=== PATIENT | female | born 1980 | race African-American/Black ===

== ENCOUNTER 2017-08-09 07:50 | Emergency (ER) | payer MEDICARE, MEDICAID ==
[2017-08-09 07:53] VITALS: BP 134/88; PULSE 61; RESP 15; TEMP 97.8; O2SAT 98
[2017-08-09] MEDS ORDERED: LISI10TA PO ×2 (08:11→11:23)
[2017-08-09] MEDS ORDERED: PALI156P IM (08:11)
[2017-08-09] MEDS ORDERED: ATOR20TA15 PO ×2 (08:11→11:23)
[2017-08-09] MEDS ORDERED: NOVOINJ2 SQ ×2 (08:11→11:23)
[2017-08-09] MEDS ORDERED: BUPR100T4 PO (08:11)
[2017-08-09] MEDS ORDERED: DEPA500T3 PO (08:11)
[2017-08-09] MEDS ORDERED: INSU1INJ5 SQ ×2 (08:11→11:23)
[2017-08-09] MEDS ORDERED: TRAZ100T6 PO (08:11)
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
[2017-08-09] MEDS ORDERED: VIST50CA PO (08:12)
[2017-08-09] MEDS ORDERED: INSULIN DETEMIR 100 UNITS/ML VIAL SQ ONE (08:45)
[2017-08-09] MEDS ORDERED: FLUCONAZOLE 200 MG TAB PO ONE (08:45)
[2017-08-09] MEDS ORDERED: INSULIN ASPART 1,000 UNITS/10 ML VIAL SQ ONE (08:45)
[2017-08-09] MEDS ORDERED: NYST15T TOPICAL (11:23)
[2017-08-09] MEDS ORDERED: FLUT1SPR5 EACH NARE (11:45)
[2017-08-09 12:37] LABS: CHLAMYDIA PCR NOT DETECTED (NOT DETECT); NEISSERIA PCR NOT DETECTED (NOT DETECT)
== END 2017-08-09 11:53 | disposition home or self-care (01) ==
LOC: NEPE 07:50
DX: E11.65 Type 2 diabetes mellitus with hyperglycemia (principal); B37.3 Candidiasis of vulva and vagina; Z72.0 Tobacco use
CPT/HCPCS: 87210; 87491; 87591; 96372; 99284; J1815

== ENCOUNTER 2017-10-02 11:30 | Emergency (ER) | payer MEDICARE, MEDICAID ==
[~2017-10-02 11:30] MED LIST: ATOR20TA15 PO; BUPR100T4 PO; DEPA500T3 PO; FLUT1SPR5 EACH NARE; INSU1INJ5 SQ; LISI10TA PO; NOVOINJ2 SQ; NYST15T TOPICAL; PALI156P IM; TRAZ100T10 PO; VIST50CA PO
[2017-10-02 11:32] VITALS: BP 141/75; PULSE 88; RESP 16; TEMP 98.5; O2SAT 98
--- NOTE | 2017-10-02 12:16 | PD ---
HPI Chief Complaint: [employer]ader Problem/Complaint Time Seen by Provider: 12:16 Travel History International Travel<30 days: No Contact w/Intl Traveler<30days: No Traveled to known affect area: No History of Present Illness HPI 37-year-old female presents to the emergency department with 2 complaints. Her first complaint is vaginal discharge times one month with foul odor. That she was seen here about a month ago for the same complaint and was given Diflucan, which she took and has had no improvement in symptoms. She denies fever, vomiting, abdominal pain, dysuria, urinary frequency. Her last menstrual period was in 2004; she has history of cervical cancer with hysterectomy. Has not followed up with a deliverer outside. She is also complaining of an abscess to the back of her neck 2 months which change 3 weeks ago. Also complaining of abscess to her left armpit 4 days. History of abscesses. No known relieving or aggravating factors. Is also requesting medication refills on lisinopril and insulin. Primary care provider is at [facility]. History of hypertension, diabetes mellitus, cervical cancer. Allergies to penicillin. Has no other medical complaint. No other modifying factors or associated signs and symptoms. PFSH Past Medical History Bipolar Disorder: Yes Anxiety: Yes Depression: Yes Cancer: Yes High Cholesterol: Yes Diabetes: Yes Hypertension: Yes Psychiatric: Yes Schizophrenia: Yes Seizures: Yes ?: Not Past Surgical History Hysterectomy: Yes Social History Alcohol Use: No Tobacco Use: Yes Substance Use: No Allergies-Medications (Allergen,Severity, Reaction): Coded Allergies: No Known Allergies (Unverified , 08/09/17) Reported Meds & Prescriptions Reported Meds & Active Scripts Active Flagyl (Metronidazole) 500 Mg Tab 500 Mg PO BID 7 Days Bactrim DS (Sulfamethoxazole-Trimethoprim) 800-160 Mg Tab 1 Tab PO BID 10 Days Diflucan (Fluconazole) 150 Mg Tab 150 Mg PO ONCE Lisinopril-Hctz 10-12.5 Mg Tab 1 Tab PO DAILY Atorvastatin (Atorvastatin Calcium) 20 Mg Tab 20 Mg PO HS Novolog Mix 70-30 FlexPen Inj (Insulin Aspart Protam-Asp 70-30 Inj) 300 Unit/3 Ml Pen 1 Units SQ BID 30 Days Levemir Flextouch Pen Inj (Insulin Detemir) 300 unit/3 ML Pen 1 Units SQ BID 30 Days Flonase Nasal [place] (Fluticasone Nasal [place]) 50 Mcg/Act [place] 50 Mcg EACH NARE BID Nystatin Topical (Nystatin) 100,000 unit/gm Cream 1 Applic TOPICAL BID 14 Days Reported Vistaril (Hydroxyzine Pamoate) 50 Mg Cap 50 Mg PO HS Trazodone (Trazodone HCl) 100 Mg Tablet 100 Mg PO HS Invega Sustenna Inj (Paliperidone Palmitate) 156 Mg/Ml Inj 156 Mg IM Q28D Bupropion HCl 100 Mg Tab 100 Mg PO HS Depakote ER (Divalproex Sodium) 500 Mg Arian 500 Mg PO DAILY Review of Systems Except as stated in HPI: all other systems reviewed are Neg Physical Exam Narrative GENERAL: Well-nourished, well-developed black female patient, in no acute distress; afebrile, nontoxic-appearing SKIN: There is an indurated area in the left axialla which measures about 1 cm in diameter. It is nonfluctuant and there is no pointing or drainage. There is a minimal zone of inflammation around it but no lymphangitis. HEAD: Atraumatic. Normocephalic. EYES: Pupils equal and round. No scleral icterus. No injection or drainage. ENT: Mucous membranes pink and moist. NECK: Trachea midline. No lymphadenopathy. CARDIOVASCULAR: Regular rate and rhythm. No murmur appreciated. RESPIRATORY: No accessory muscle use. Clear to auscultation. Breath sounds equal bilaterally. GASTROINTESTINAL: Abdomen soft, non-tender, nondistended. Bilateral pelvic region nontender to palpation. Hepatic and splenic margins not palpable. No guarding, rigidity. PELVIC: Exam done in the presence of a nurse. Speculum exam creamy, white mucopurulent, foul-smelling discharge; patient does not have a cervix. Bimanual exam reveals no palpable masses or adnexa tenderness, no uterine tenderness. BACK: No CVA tenderness. MUSCULOSKELETAL: No obvious deformities. No clubbing. No cyanosis. No edema. NEUROLOGICAL: Awake and alert. No obvious cranial nerve deficits. Motor grossly within normal limits. Normal speech. PSYCHIATRIC: Appropriate mood and affect; insight and judgment normal. Data Data Last Documented VS Vital Signs Date Time Temp Pulse Resp B/P (MAP) Pulse Ox O2 Delivery O2 Flow Rate FiO2 10/02/17 13:55 80 16 134/74 (94) 99 10/02/17 11:32 98.5 Orders Orders Gc And Chlamydia Pcr (10/02/17 12:18) Wet Prep Profile (10/02/17 12:18) Urinalysis - C+S If Indicated (10/02/17 12:18) Ed Urine Pregnancytest Poc (10/02/17 12:18) Ed Discharge Order (10/02/17 13:51) Labs Laboratory Tests Test 10/02/17 12:48 Urine Color YELLOW Urine Turbidity HAZY Urine pH 6.0 Urine Specific [place] 1.029 Urine Protein 30 mg/dL Urine Glucose (UA) 1000 mg/dL Urine Ketones 10 mg/dL Urine Occult Blood NEG Urine Nitrite NEG Urine Bilirubin NEG Urine Urobilinogen 2.0 MG/DL Urine Leukocyte Esterase SMALL Urine RBC 2 /hpf Urine WBC 4 /hpf Urine Squamous Epithelial Cells 8 /hpf Urine Mucus MANY /lpf Microscopic Urinalysis Comment CULT NOT INDICATED Clue Cells (Wet Prep) NONE SEEN Vaginal Trichomonas (Wet Prep) NONE SEEN Vaginal Yeast (Wet Prep) NONE SEEN Chlamydia trachomatis DNA (PCR) NOT DETECTED Neisseria gonorrhoeae DNA (PCR) NOT DETECTED MDM Medical Decision Making Medical Screen Exam Complete: Yes Emergency Medical Condition: Yes Medical Record Reviewed: Yes Differential Diagnosis Bacterial vaginosis, yeast infection, hyperglycemia Narrative Course 37-year-old female physical exam consistent with vaginitis. Patient is insulin- dependent diabetic and has not had her insulin in one month. She is not been checking her blood sugars. Bedside glucose in the ER 217. Patient also has an abscess of the left axilla which is nonfluctuant and does not ready for incision and drainage. I discussed antibiotic therapy, warm compresses and to return for I & D if worsening. Wet prep is negative for Trichomonas, clue cells , bacterial vaginosis. Chlamydia and gonorrhea are pending. Patient provided with refills for her insulin, atorvastatin, and lisinopril. Bactrim prescribed for abscess to left axilla. Diflucan and Flagyl prescribed for vaginitis. Patient provided information for [facility] and [facility]. Instructed patient to follow up with deliverer outside and primary care provider. Instructed patient to follow up with primary care provider. Patient verbalizes understanding and agreement with treatment plan. Patient is medically cleared and stable for discharge. Discussed reasons to return to the emergency department. Patient agrees with treatment plan. The patients vital signs are stable and the patient is stable for outpatient follow-up and treatment. Patient discharged home, stable and in no acute distress. Diagnosis Primary Impression: Abscess of left axilla Additional Impressions: Vaginitis Qualified Codes: N76.0 - Acute vaginitis Medication refill Referrals: [facility] Primary Care Physician Patient Instructions: Abscess (ED), Abscess Follow-up (ED), Bacterial Vaginosis (ED), General Instructions, Medication Refill, ED, Skin Yeast Infection (ED), Vaginitis (ED) Departure Forms: Tests/Procedures, Work Release Enter return to work date: Oct 03, 2017 Additional Instructions: Complete full course of antibiotics Warm compresses to the affected area Keep area clean and dry Ibuprofen or Tylenol as directed and as needed for pain and inflammation Follow-up with primary care provider Return to emergency department immediately with worsening of symptoms Take Diflucan and Flagyl as directed and as needed Maintain good personal hygiene Follow-up with primary care provider Follow-up with gynecology Return to the emergency department immediately with worsening of symptoms Med/Other Pt SpecificInfo: Prescription(s) given Scripts Metronidazole (Flagyl) 500 Mg Tab 500 MG PO BID for Infection for 7 Days, #14 TAB 0 Refills Prov: Jaya Crystalabdifatah ODEN 10/02/17 Sulfamethoxazole-Trimethoprim (Bactrim DS) 800-160 Mg Tab 1 TAB PO BID for Infection for 10 Days, #20 TAB 0 Refills Prov: LoAllie gardinerP 10/02/17 Fluconazole (Diflucan) 150 Mg Tab 150 MG PO ONCE for Infection, #1 TAB 1 Refill Prov: Jaya Crystalabdifatah ODEN 10/02/17 Lisinopril-Hctz (Lisinopril-Hctz) 10-12.5 Mg Tab 1 TAB PO DAILY for Blood Pressure Management, #30 TAB 0 Refills Prov: LoAllie gardinerP 10/02/17 Atorvastatin (Atorvastatin) 20 Mg Tab 20 MG PO HS for Cholesterol Management, #30 TAB 0 Refills Prov: MarahAllieP 10/02/17 Insulin Aspart Protam-Asp 70-30 Inj (Novolog Mix 70-30 FlexPen Inj) 300 Unit/3 Ml Pen 1 UNITS SQ BID for Blood Sugar Management for 30 Days, #1 PEN 0 Refills Prov: Allie Crystal 10/02/17 Insulin Detemir Inj (Levemir Flextouch Pen Inj) 300 unit/3 ML Pen 1 UNITS SQ BID for Blood Sugar Management for 30 Days, PEN 0 Refills Prov: Allie Crystal 10/02/17 Disposition: 01 DISCHARGE HOME Condition: Stable Allie Crystal Oct 02, 2017 12:16
[2017-10-02] MEDS ORDERED: LISI10TA PO (12:30)
[2017-10-02] MEDS ORDERED: ATOR20TA15 PO (12:30)
[2017-10-02] MEDS ORDERED: NOVOINJ2 SQ (12:30)
[2017-10-02] MEDS ORDERED: INSU1INJ5 SQ (12:30)
[2017-10-02] MEDS ORDERED: METR-1 PO (13:38)
[2017-10-02] MEDS ORDERED: BACT800T5 PO (13:38)
[2017-10-02] MEDS ORDERED: DIFL150T PO (13:38)
[2017-10-02 13:52] LABS: BLOOD, URINE NEG (NEG); GLUCOSE,URINE 1000 mg/dL (NEG); KETONE, URINE 10 mg/dL (NEG); MUCUS URINE MANY /lpf (OCC); NITRITE,URINE NEG (NEG); SQUAMOUS EPITHELIAL CELL URINE 8 /hpf (0-5); URINE COLOR YELLOW (YELLW/STRAW)
[2017-10-02 13:54] LABS: COMMENT (UR) CULT NOT INDICATED; CULTURE IF INDICATED CULT NOT INDICATED
[2017-10-02 13:55] VITALS: BP 134/74
[2017-10-02 15:42] LABS: CHLAMYDIA PCR NOT DETECTED (NOT DETECT); NEISSERIA PCR NOT DETECTED (NOT DETECT)
== END 2017-10-02 14:08 | disposition home or self-care (01) ==
LOC: NEPD 11:30
DX: L02.412 Cutaneous abscess of left axilla (principal); N76.0 Acute vaginitis; E11.9 Type 2 diabetes mellitus without complications; I10 Essential (primary) hypertension; F31.9 Bipolar disorder, unspecified; F41.9 Anxiety disorder, unspecified; E78.00 Pure hypercholesterolemia, unspecified; F20.9 Schizophrenia, unspecified; R56.9 Unspecified convulsions
CPT/HCPCS: 81001; 84703; 87210; 87491; 87591; 99284

== ENCOUNTER 2017-12-24 09:40 | Emergency (ER) | payer MEDICARE, MEDICAID ==
[~2017-12-24] VITALS: Ht 154.9 cm; Wt 110.0 kg
[~2017-12-24 09:40] MED LIST changes: +BACT800T5 PO; +DIFL150T PO; +METR-1 PO
[2017-12-24 09:58] VITALS: BP 168/89; PULSE 68; RESP 16; TEMP 98.1; O2SAT 98
[2017-12-24] MEDS ORDERED: KETOROLAC TROMETHAMINE 60 MG/2 ML (IM) VIAL IM ONE (10:45)
--- NOTE | 2017-12-24 11:42 | PD ---
HPI Chief Complaint: Pain: Acute or Chronic Time Seen by Provider: 11:15 Travel History International Travel<30 days: No Contact w/Intl Traveler<30days: No Traveled to known affect area: No History of Present Illness HPI 37 YO F with PMH of T2DM, hysterectomy presents to the ED for evaluation of 1 week history of bilateral ankle pain. Gradual onset. Throbbing, Rated 6/10. Worsened by ambulation. Patient can identify no recent trauma. 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 She also complains of 1 week history of thick white vaginal discharge and foul odor. She denies fever, chill,abdominal pain, dysuria, hematuria, vaginal itching, vaginal bleeding, numbness, tingling , weakness of the lower extremities. She states that her ankle symptoms are simliar to previous episodes of tendonitis. She states that her vaginal symptoms are similar to previous episodes of BV. No treatment attempted at home. PFSH Past Medical History Bipolar Disorder: Yes Anxiety: Yes Depression: Yes Cancer: Yes High Cholesterol: Yes Diabetes: Yes Patient Takes Glucophage: No Diminished Hearing: No Hypertension: Yes Psychiatric: Yes Schizophrenia: Yes Seizures: Yes Tetanus Vaccination: < 5 Years Influenza Vaccination: No ?: Not : 1 Para: 1 Miscarriage: 0 : 0 Past Surgical History Hysterectomy: Yes Social History Alcohol Use: No Tobacco Use: Yes (1PPD) Substance Use: No Allergies-Medications (Allergen,Severity, Reaction): Coded Allergies: No Known Allergies (Unverified Adverse Reaction, Unknown, 12/24/17) Reported Meds & Prescriptions Reported Meds & Active Scripts Active Naprosyn (Naproxen) 500 Mg Tab 500 Mg PO BID 5 Days Flagyl (Metronidazole) 500 Mg Tab 500 Mg PO BID 7 Days Lisinopril-Hctz 10-12.5 Mg Tab 1 Tab PO DAILY Atorvastatin (Atorvastatin Calcium) 20 Mg Tab 20 Mg PO HS Novolog Mix 70-30 FlexPen Inj (Insulin Aspart Protam-Asp 70-30 Inj) 300 Unit/3 Ml Pen 1 Units SQ BID 30 Days Levemir Flextouch Pen Inj (Insulin Detemir) 300 unit/3 ML Pen 1 Units SQ BID 30 Days Reported Vistaril (Hydroxyzine Pamoate) 50 Mg Cap 50 Mg PO HS Trazodone (Trazodone HCl) 100 Mg Tablet 100 Mg PO HS Invega Sustenna Inj (Paliperidone Palmitate) 156 Mg/Ml Inj 156 Mg IM Q28D Bupropion HCl 100 Mg Tab 100 Mg PO HS Depakote ER (Divalproex Sodium) 500 Mg Arian 500 Mg PO DAILY Review of Systems Except as stated in HPI: all other systems reviewed are Neg Physical Exam Narrative GENERAL: Well-nourished, well-developed AA female in NAD. SKIN: Focused skin assessment warm/dry. HEAD: Normocephalic. EYES: No scleral icterus. No injection or drainage. NECK: Supple, trachea midline. No JVD or lymphadenopathy. CARDIOVASCULAR: Regular rate and rhythm without murmurs, gallops, or rubs. RESPIRATORY: Breath sounds clear and equal bilaterally. No accessory muscle use. GASTROINTESTINAL: Abdomen soft, non-tender, nondistended. Active bowel sounds. GENITOURINARY: Normal external genitalia without lesions or erythema. Vaginal vault without blood. Copious thick white drainage. Cervix, uterus, ovaries are absent secondary to previous surgery. MUSCULOSKELETAL: No cyanosis. Trace edema in bilateral ankles. No malleolar tenderness bilaterally. TTP over the anterior aspect of the talus bilaterally. BACK: Nontender without obvious deformity. No CVA tenderness. Data Data Last Documented VS Vital Signs Date Time Temp Pulse Resp B/P (MAP) Pulse Ox O2 Delivery O2 Flow Rate FiO2 12/24/17 12:00 16 12/24/17 09:58 98.1 68 168/89 (115) 98 Orders Orders Urinalysis - C+S If Indicated (12/24/17 10:33) Wet Prep Profile (12/24/17 10:33) Gc And Chlamydia Pcr (12/24/17 10:33) Ketorolac Inj (Toradol Inj) (12/24/17 10:45) Ed Discharge Order (12/24/17 12:25) Labs Laboratory Tests Test 12/24/17 11:30 Urine Color YELLOW Urine Turbidity HAZY Urine pH 7.0 Urine Specific [place] 1.019 Urine Protein TRACE mg/dL Urine Glucose (UA) TRACE mg/dL Urine Ketones NEG mg/dL Urine Occult Blood NEG Urine Nitrite NEG Urine Bilirubin NEG Urine Urobilinogen LESS THAN 2.0 MG/DL Urine Leukocyte Esterase NEG Urine RBC LESS THAN 1 /hpf Urine WBC 1 /hpf Urine Squamous Epithelial Cells 11 /hpf Urine Mucus MOD /lpf Microscopic Urinalysis Comment CULT NOT INDICATED Clue Cells (Wet Prep) NONE SEEN Vaginal Trichomonas (Wet Prep) NONE SEEN Vaginal Yeast (Wet Prep) NONE SEEN MDM Medical Decision Making Medical Screen Exam Complete: Yes Emergency Medical Condition: Yes Differential Diagnosis plantar fasciitis versus tendonitis versus dependent edema versus UTI verus STI versus BV versus candidiasis versus other Narrative Course 37 YO F with PMH of T2DM, hysterectomy presents to the ED for evaluation of 1 week history of bilateral ankle pain. 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 She also complains of 1 week history of thick white vaginal discharge and foul odor. She denies fever, chill,abdominal pain, dysuria, hematuria, vaginal itching, vaginal bleeding, numbness, tingling, weakness of the lower extremities. Vitals reviewed. On exam is nontoxic appearing -[place] female in no acute distress. Abdominal exam is completely benign. Vaginal exam reveals thick discharge from the canal. Ankles are mildly edematous and tender over the anterior talar bones. No limitations to range of motion, loss of sensation, neurovascular compromise noted. Patient was administered 15 mg Toradol IM. No culture indicated of the UA. Wet prep negative. GC and chlamydia pending. Patient declines empiric treatment for gonorrhea and chlamydia at this time. As prescribed 500 mg Naprosyn twice a day 5 days, 500 mg Flagyl twice a day 7 days. He is instructed to rest, ice, elevate the extremities, with supportive shoes. She was provided with a note of excuse for work. She is instructed to follow-up with the [facility]. She is stable and discharged home. Diagnosis Primary Impression: Fasciitis, unspecified Additional Impressions: Overuse injury Vaginal discharge Referrals: [facility] Patient Instructions: General Instructions, Vaginal Discharge (ED) Departure Forms: Tests/Procedures, Work Release Enter return to work date: Dec 31, 2017 Additional Instructions: Rest, ice, elevate the lower extremities Apply ice no longer than 10-15 minutes per hour a few times a day. 500 mg Naprosyn twice a day as prescribed to reduce inflammation and swelling. Return to normal, gentle activity as tolerated. Wears supportive shoes. No running, jumping activities for the next few weeks. Take antibiotics as prescribed until every pill is gone. Follow up [facility]. Return to the ED for any urgent or emergent medical condition. Med/Other Pt SpecificInfo: Prescription(s) given Scripts Naproxen (Naprosyn) 500 Mg Tab 500 MG PO BID for 5 Days, #10 TAB 0 Refills Prov: Tripp Reilly MD 12/24/17 Metronidazole (Flagyl) 500 Mg Tab 500 MG PO BID for Infection for 7 Days, #14 TAB 0 Refills Prov: Tripp Reilly MD 12/24/17 Disposition: 01 DISCHARGE HOME Condition: Stable Leonila Resendiz Dec 24, 2017 11:41
[2017-12-24 11:50] LABS: BILIRUBIN, URINE NEG (NEG); BLOOD, URINE NEG (NEG); GLUCOSE,URINE TRACE mg/dL (NEG); KETONE, URINE NEG (NEG); MUCUS URINE MOD /lpf (OCC); NITRITE,URINE NEG (NEG); SQUAMOUS EPITHELIAL CELL URINE 11 /hpf (0-5); URINE COLOR YELLOW (YELLW/STRAW); URINE LEUKOCYTE ESTERASE NEG (NEG)
[2017-12-24 12:00] VITALS: RESP 16
[2017-12-24] MEDS ORDERED: NAPR500 PO (12:07)
[2017-12-24] MEDS ORDERED: METR-1 PO (12:07)
== END 2017-12-24 12:48 | disposition home or self-care (01) ==
LOC: NEPE 09:40
DX: M72.9 Fibroblastic disorder, unspecified (principal); N89.8 Other specified noninflammatory disorders of vagina; F31.9 Bipolar disorder, unspecified; E78.00 Pure hypercholesterolemia, unspecified; E11.9 Type 2 diabetes mellitus without complications; I10 Essential (primary) hypertension; F20.9 Schizophrenia, unspecified; F17.210 Nicotine dependence, cigarettes, uncomplicated; Z85.9 Personal history of malignant neoplasm, unspecified
CPT/HCPCS: 81001; 87210; 87491; 87591; 96372; 99283; J1885

== ENCOUNTER 2018-01-24 08:44 | Emergency (ER) | payer MEDICARE, MEDICAID ==
[~2018-01-24 08:44] MED LIST changes: -BACT800T5 PO; -DIFL150T PO; -FLUT1SPR5 EACH NARE; +NAPR500 PO; -NYST15T TOPICAL
[2018-01-24 08:53] VITALS: BP 156/93; PULSE 88; RESP 16; TEMP 97.6; O2SAT 98
--- NOTE | 2018-01-24 09:05 | PD ---
HPI Chief Complaint: Abdominal Pain Time Seen by Provider: 09:03 Travel History International Travel<30 days: No Contact w/Intl Traveler<30days: No Traveled to known affect area: No History of Present Illness HPI Patient complaining of abdominal pain/FLANK PAIN LEFT, sharp/crampy in nature, 5 out of 10, nonradiating. Patient denies any alleviating or aggravating factors. Patient denies any associated factors such as fever, rash, nausea, vomiting, diarrhea, chest pain, headache, neck pain. Allergy to penicillin Past medical history significant for seizures, hypercholesterolemia, hypertension, hysterectomy, diabetes, schizophrenia, bipolar disorder, patient does smoke 1 pack a day PFSH Past Medical History Bipolar Disorder: Yes Anxiety: Yes Depression: Yes Cancer: Yes High Cholesterol: Yes Diabetes: Yes Diminished Hearing: No Hypertension: Yes Psychiatric: Yes Schizophrenia: Yes Seizures: Yes : 1 Para: 1 Miscarriage: 0 : 0 Past Surgical History Hysterectomy: Yes Social History Alcohol Use: No Tobacco Use: Yes (1PPD) Substance Use: No Allergies-Medications (Allergen,Severity, Reaction): Coded Allergies: penicillin G (Verified Allergy, Unknown, 01/24/18) Reported Meds & Prescriptions Reported Meds & Active Scripts Active Codeine-Acetaminophen 30-300 mg Tab 1 Tab PO Q4H PRN Lisinopril-Hctz 10-12.5 Mg Tab 1 Tab PO DAILY Atorvastatin (Atorvastatin Calcium) 20 Mg Tab 20 Mg PO HS Novolog Mix 70-30 FlexPen Inj (Insulin Aspart Protam-Asp 70-30 Inj) 300 Unit/3 Ml Pen 1 Units SQ BID 30 Days Levemir Flextouch Pen Inj (Insulin Detemir) 300 unit/3 ML Pen 1 Units SQ BID 30 Days Reported Vistaril (Hydroxyzine Pamoate) 50 Mg Cap 50 Mg PO HS Trazodone (Trazodone HCl) 100 Mg Tablet 100 Mg PO HS Invega Sustenna Inj (Paliperidone Palmitate) 156 Mg/Ml Inj 156 Mg IM Q28D Bupropion HCl 100 Mg Tab 100 Mg PO HS Depakote ER (Divalproex Sodium) 500 Mg Arian 500 Mg PO DAILY Review of Systems General / Constitutional: No: Fever Eyes: No: Visual changes HENT: No: Headaches Cardiovascular: No: Chest Pain or Discomfort Respiratory: No: Shortness of Breath Gastrointestinal: Positive: Abdominal Pain Genitourinary: No: Dysuria Musculoskeletal: No: Pain Skin: No Rash Neurologic: No: Weakness Psychiatric: No: Depression Endocrine: No: Polydipsia Hematologic/Lymphatic: No: Easy Bruising Physical Exam Narrative GENERAL: SKIN: Warm and dry. HEAD: Atraumatic. Normocephalic. EYES: Pupils equal and round. No scleral icterus. No injection or drainage. ENT: No nasal bleeding or discharge. Mucous membranes pink and moist. NECK: Trachea midline. No JVD. CARDIOVASCULAR: Regular rate and rhythm. RESPIRATORY: No accessory muscle use. Clear to auscultation. Breath sounds equal bilaterally. GASTROINTESTINAL: Abdomen soft, non-tender, nondistended. MUSCULOSKELETAL: Extremities without clubbing, cyanosis, or edema. No obvious deformities. NEUROLOGICAL: Awake and alert. No obvious cranial nerve deficits. Motor grossly within normal limits. Five out of 5 muscle strength in the arms and legs. Normal speech. PSYCHIATRIC: Appropriate mood and affect; insight and judgment normal. Data Data Last Documented VS Vital Signs Date Time Temp Pulse Resp B/P (MAP) Pulse Ox O2 Delivery O2 Flow Rate FiO2 01/24/18 09:37 100 Room Air 01/24/18 08:53 97.6 88 16 156/93 (114) Orders Orders Beta Hcg (Quant/Titer) (01/24/18 09:24) Complete Blood Count With Diff (01/24/18:24) Comprehensive Metabolic Panel (01/24/18 09:24) Lipase (01/24/18:24) Prothrombin Time / Inr (Pt) (01/24/18:24) Act Partial Throm Time (Ptt) (01/24/18:24) Urinalysis - C+S If Indicated (01/24/18 09:24) Ct Abd/Pel W/O Iv Contrast (01/24/18 09:24) Iv Access Insert/Monitor (01/24/18:24) Ecg Monitoring (01/24/18:24) Oximetry (01/24/18:24) NPO (01/24/18 09:24) Sodium Chloride 0.9% Flush (Ns Flush) (01/24/18 09:30) Morphine Inj (Morphine Inj) (01/24/18 11:45) Ondansetron Inj (Zofran Inj) (01/24/18 11:45) Ed Discharge Order (01/24/18 12:06) Labs Laboratory Tests Test 01/24/18 09:35 White Blood Count 8.4 TH/MM3 Red Blood Count 4.60 MIL/MM3 Hemoglobin 14.4 GM/DL Hematocrit 42.5 % Mean Corpuscular Volume 92.3 FL Mean Corpuscular Hemoglobin 31.4 PG Mean Corpuscular Hemoglobin Concent 34.0 % Red Cell Distribution Width 14.0 % Platelet Count 346 TH/MM3 Mean Platelet Volume 8.6 FL Neutrophils (%) (Auto) 62.2 % Lymphocytes (%) (Auto) 28.2 % Monocytes (%) (Auto) 6.0 % Eosinophils (%) (Auto) 3.2 % Basophils (%) (Auto) 0.4 % Neutrophils # (Auto) 5.2 TH/MM3 Lymphocytes # (Auto) 2.4 TH/MM3 Monocytes # (Auto) 0.5 TH/MM3 Eosinophils # (Auto) 0.3 TH/MM3 Basophils # (Auto) 0.0 TH/MM3 CBC Comment DIFF FINAL Differential Comment Prothrombin Time 10.0 SEC Prothromb Time International Ratio 1.0 RATIO Activated Partial Thromboplast Time 26.6 SEC Urine Color YELLOW Urine Turbidity CLEAR Urine pH 6.5 Urine Specific [place] 1.032 Urine Protein TRACE mg/dL Urine Glucose (UA) 70 mg/dL Urine Ketones NEG mg/dL Urine Occult Blood NEG Urine Nitrite NEG Urine Bilirubin NEG Urine Urobilinogen 2.0 MG/DL Urine Leukocyte Esterase NEG Urine RBC 1 /hpf Urine WBC LESS THAN 1 /hpf Urine Squamous Epithelial Cells 5 /hpf Urine Mucus MANY /lpf Microscopic Urinalysis Comment CULT NOT INDICATED Blood Urea Nitrogen 13 MG/DL Creatinine 0.79 MG/DL Random Glucose 165 MG/DL Total Protein 7.7 GM/DL Albumin 3.3 GM/DL Calcium Level 9.1 MG/DL Alkaline Phosphatase 79 U/L Aspartate Amino Transf (AST/SGOT) 14 U/L Alanine Aminotransferase (ALT/SGPT) 17 U/L Total Bilirubin 0.2 MG/DL Sodium Level 139 MEQ/L Potassium Level 4.0 MEQ/L Chloride Level 103 MEQ/L Carbon Dioxide Level 28.2 MEQ/L Anion Gap 8 MEQ/L Estimat Glomerular Filtration Rate 99 ML/MIN Lipase 82 U/L Human Chorionic Gonadotropin, Quant LESS THAN 1 MIU/ML MDM Medical Decision Making Medical Screen Exam Complete: Yes Emergency Medical Condition: Yes Medical Record Reviewed: Yes Differential Diagnosis Colitis versus diverticulitis versus related versus UTI versus pancreatitis versus hepatitis Narrative Course CBC shows no leukocytosis, no anemia, no left shift, and normal platelet count. Coagulation profile is within normal limits UA is more consistent with a poor specimen collection and no evidence of UTI. Chemistry shows normal electrolytes with the exception of glucose of 165, normal kidney liver and pancreatic enzymes. HCG quantitative is less than 1 As of [address] results As of 1159 CT abdomen pelvis reported: No evidence of calcified gallstones, no calcified phleboliths about the cervix, no dilated loops of small or large bowel and negative renal colic CT per radiologist Diagnosis Primary Impression: Flank pain NOS Referrals: Matt Cross MD FOR FURTHER GYNECOLOGICAL FOLLOW UP [facility] FOR FURTHER CARE OR CONCERNS Patient Instructions: General Instructions, Ovarian Cyst (DC) Scripts Codeine-Acetaminophen (Codeine-Acetaminophen) 30-300 mg Tab 1 TAB PO Q4H Y for PAIN, #10 TAB 0 Refills Prov: Ghassan Ornelas MD 01/24/18 Disposition: 01 DISCHARGE HOME Condition: Stable Ghassan Ornelas MD Jan 24, 2018 09:05
[2018-01-24] MEDS ORDERED: SODIUM CHLORIDE 0.9% FLUSH 10 ML FLUSH IV FLUSH PRN (09:30)
[2018-01-24 09:37] VITALS: O2SAT 100
[2018-01-24 10:12] LABS: AUTOMATED NEUTROPHIL # 5.2 TH/MM3 (1.8-7.7); BASOPHIL % 0.4 % (0.0-2.0); EOSINOPHIL # 0.3 TH/MM3 (0-0.4); EOSINOPHIL % 3.2 % (0.0-4.0); HEMATOCRIT 42.5 % (35.0-46.0); HEMOGLOBIN 14.4 GM/DL (11.6-15.3); LYMPH % 28.2 % (9.0-44.0); LYMPHOCYTE # 2.4 TH/MM3 (1.0-4.8); MEAN CELL VOLUME 92.3 FL (80.0-100.0); MEAN CORPUSCULAR HEMOGLOBIN 31.4 PG (27.0-34.0); MEAN PLATELET VOLUME 8.6 FL (7.0-11.0); MONOCYTE # 0.5 TH/MM3 (0-0.9); NEUT % 62.2 % (16.0-70.0); PLATELET COUNT 346 TH/MM3 (150-450); WHITE BLOOD COUNT 8.4 TH/MM3 (4.0-11.0)
[2018-01-24 10:30] LABS: BILIRUBIN, URINE NEG (NEG); BLOOD, URINE NEG (NEG); GLUCOSE,URINE 70 mg/dL (NEG); KETONE, URINE NEG (NEG); MUCUS URINE MANY /lpf (OCC); NITRITE,URINE NEG (NEG); PH, URINE 6.5 (5.0-8.5); SQUAMOUS EPITHELIAL CELL URINE 5 /hpf (0-5); URINE COLOR YELLOW (YELLW/STRAW); URINE LEUKOCYTE ESTERASE NEG (NEG)
[2018-01-24 10:45] LABS: ALBUMIN 3.3 GM/DL (3.4-5.0); ALT (GPT) 17 U/L (10-53); AST (GOT) 14 U/L (15-37); BICARBONATE 28.2 MEQ/L (21.0-32.0); BLOOD UREA NITROGEN 13 MG/DL (7-18); CALCIUM 9.1 MG/DL (8.5-10.1); CHLORIDE 103 MEQ/L (98-107); CREATININE 0.79 MG/DL (0.50-1.00); GLOMERULAR FILTRATION RATE 99 ML/MIN (>89); GLUCOSE,RANDOM 165 MG/DL (74-106); SODIUM (NA) 139 MEQ/L (136-145)
[2018-01-24 10:49] LABS: ALKALINE PHOSPHATASE 79 U/L (45-117); TOTAL BILIRUBIN ADULT 0.2 MG/DL (0.2-1.0); TOTAL PROTEIN 7.7 GM/DL (6.4-8.2)
[2018-01-24] MEDS ORDERED: ONDANSETRON HCL 4 MG/2 ML VIAL IVP ONE (11:45)
[2018-01-24] MEDS ORDERED: MORPHINE SULFATE 4 MG/ML INJ IV PUSH ONE (11:45)
--- NOTE | 2018-01-24 11:54 | RADRPT ---
EXAM DATE/TIME: 01/24/2018 11:36 [place] COMPARISON: No previous studies available for comparison. INDICATIONS : Left lower quadrant pain. ORAL CONTRAST: No oral contrast ingested. RADIATION DOSE: 25.17 CTDIvol (mGy) MEDICAL HISTORY : Seizures. Hypertension. cervical cancer, diabetes. SURGICAL HISTORY : Hysterectomy. ENCOUNTER: Initial ACUITY: 1 day PAIN SCALE: 7/10 LOCATION: Left lower quadrant TECHNIQUE: Renal colic protocol. Volumetric scanning of the abdomen and pelvis was performed. Using automated exposure control and adjustment of the mA and/or kV according to patient size, radiation dose was kep t as low as reasonably achievable to obtain optimal diagnostic quality images. DICOM format image da ta is available electronically for review and comparison. FINDINGS: Right side: No evidence of hydronephrosis. No calcified stones in the collecting system or ureter. Left side: No evidence of hydronephrosis. No calcified stones in the collecting system or ureter. Bladder: Smooth margins. No calcifications within the lumen. Other: No calcified gallstones. No dilated loops of small or large bowel. No calcified phleboliths about t he cervix. CONCLUSION: Negative renal colic CT. Prakash Hilton MD on January 24, 2018 at 11:50 Board Certified Radiologist. This report was verified electronically.
[2018-01-24] MEDS ORDERED: CODE30TA2 PO (12:03)
== END 2018-01-24 13:02 | disposition home or self-care (01) ==
LOC: NEPC 08:44
DX: R10.9 Unspecified abdominal pain (principal); F31.9 Bipolar disorder, unspecified; F41.9 Anxiety disorder, unspecified; E78.00 Pure hypercholesterolemia, unspecified; E11.9 Type 2 diabetes mellitus without complications; I10 Essential (primary) hypertension; F20.9 Schizophrenia, unspecified; F17.200 Nicotine dependence, unspecified, uncomplicated; Z85.41 Personal history of malignant neoplasm of cervix uteri
CPT/HCPCS: 74176; 80053; 81001; 83690; 84702; 85025; 85610; 85730; 96374; 96375; 99284; J2270; J2405

== ENCOUNTER 2018-01-28 16:02 | Emergency (ER) | payer MEDICARE, MEDICAID ==
[~2018-01-28 16:02] MED LIST changes: +CODE30TA2 PO; -METR-1 PO; -NAPR500 PO
== END 2018-01-28 20:38 | disposition left against medical advice (07) ==
LOC: NED 16:02
DX: R10.9 Unspecified abdominal pain (principal)
CPT/HCPCS: 99281

== ENCOUNTER 2018-01-31 11:48 | Emergency (ER) | payer MEDICARE, MEDICAID ==
[~2018-01-31] VITALS: Ht 154.9 cm; Wt 102.0 kg
[2018-01-31 12:20] VITALS: BP 170/92; PULSE 77; RESP 19; TEMP 97.8; O2SAT 99
== END 2018-01-31 13:37 | disposition left against medical advice (07) ==
LOC: NED 11:48
DX: R10.9 Unspecified abdominal pain (principal)
CPT/HCPCS: 99281

== ENCOUNTER 2018-02-10 22:06 | Inpatient (IN) | payer MEDICARE, MEDICAID, OTHER ==
[~2018-02-10] VITALS: Ht 156.2 cm; Wt 104.0 kg
[2018-02-10 22:19] VITALS: BP 176/98; PULSE 101; RESP 24; TEMP 98.1
[2018-02-10] MEDS ORDERED: HALOPERIDOL LACTATE 5 MG/ML AMP IM ONE (22:30)
[2018-02-10] MEDS ORDERED: LORazepam 2 MG/ML VIAL IM ONE (22:30)
[2018-02-10 22:50] LABS: AUTOMATED NEUTROPHIL # 12.4 TH/MM3 (1.8-7.7); BASOPHIL # 0.1 TH/MM3 (0-0.2); BASOPHIL % 0.6 % (0.0-2.0); EOSINOPHIL % 0.3 % (0.0-4.0); HEMOGLOBIN 13.8 GM/DL (11.6-15.3); LYMPHOCYTE # 2.2 TH/MM3 (1.0-4.8); MEAN CELL VOLUME 90.3 FL (80.0-100.0); MEAN CORPUSCULAR HEMOGLOBIN 30.4 PG (27.0-34.0); MEAN CORPUSCULAR HGB CONC 33.6 % (32.0-36.0); MEAN PLATELET VOLUME 8.6 FL (7.0-11.0); MONO % 7.4 % (0.0-8.0); MONOCYTE # 1.2 TH/MM3 (0-0.9); NEUT % 77.7 % (16.0-70.0); PLATELET COUNT 387 TH/MM3 (150-450); RED BLOOD COUNT 4.54 MIL/MM3 (4.00-5.30); RED CELL DISTRIBUTION WIDTH 13.9 % (11.6-17.2); WHITE BLOOD COUNT 15.9 TH/MM3 (4.0-11.0)
[2018-02-10 22:59] LABS: BILIRUBIN, URINE NEG (NEG); BLOOD, URINE NEG (NEG); GLUCOSE,URINE 300 mg/dL (NEG); KETONE, URINE TRACE mg/dL (NEG); MUCUS URINE MANY /lpf (OCC); NITRITE,URINE NEG (NEG); SQUAMOUS EPITHELIAL CELL URINE 39 /hpf (0-5); URINE COLOR YELLOW (YELLW/STRAW); URINE LEUKOCYTE ESTERASE NEG (NEG)
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
[2018-02-10 23:47] LABS: ACETAMINOPHEN LESS THAN 2.0 MCG/ML (10.0-30.0); ALBUMIN 3.6 GM/DL (3.4-5.0); ALKALINE PHOSPHATASE 80 U/L (45-117); ALT (GPT) 21 U/L (10-53); AST (GOT) 18 U/L (15-37); BICARBONATE 23.9 MEQ/L (21.0-32.0); BLOOD UREA NITROGEN 11 MG/DL (7-18); CALCIUM 9.3 MG/DL (8.5-10.1); CHLORIDE 106 MEQ/L (98-107); CREATININE 0.85 MG/DL (0.50-1.00); GLOMERULAR FILTRATION RATE 91 ML/MIN (>89); GLUCOSE,RANDOM 149 MG/DL (74-106); SODIUM (NA) 139 MEQ/L (136-145); TOTAL BILIRUBIN ADULT 0.5 MG/DL (0.2-1.0); TOTAL PROTEIN 8.5 GM/DL (6.4-8.2)
[2018-02-11] MEDS ORDERED: OLANZapine IM 10 MG VIAL IM ONE (05:30)
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
[2018-02-11 12:31] VITALS: BP 137/90; PULSE 81; RESP 18; TEMP 96.8; O2SAT 99
[2018-02-11] MEDS ORDERED: LORazepam 2 MG/ML VIAL IM ONE (13:45)
[2018-02-11] MEDS ORDERED: HALOPERIDOL LACTATE 5 MG/ML AMP IM ONE (13:45)
[2018-02-11] MEDS ORDERED: diphenhydrAMINE HCL 50 MG/ML VIAL IM ONE (13:45)
[2018-02-11] MEDS ORDERED: HALOPERIDOL LACTATE 5 MG/ML AMP ONE (13:48)
[2018-02-11] MEDS ORDERED: LORazepam 2 MG/ML VIAL ONE (13:48)
[2018-02-11] MEDS ORDERED: diphenhydrAMINE HCL 50 MG/ML VIAL ONE (13:48)
[2018-02-11] MEDS ORDERED: LORazepam 2 MG/ML VIAL IM PRN ×2 (14:45)
[2018-02-11] MEDS ORDERED: MAGNESIUM HYDROXIDE SUSP 30 ML CUP PO PRN (14:45)
[2018-02-11] MEDS ORDERED: LORazepam 1 MG TAB PO PRN (14:45)
[2018-02-11] MEDS ORDERED: ACETAMINOPHEN 325 MG TAB PO PRN (14:45)
[2018-02-11] MEDS ORDERED: ALUMINUM/MAGNESIUM/SIMETH 30 ML CUP PO PRN (14:45)
[2018-02-11] MEDS ORDERED: LORazepam 0.5 MG TAB PO PRN (14:45)
[2018-02-11] MEDS ORDERED: HALOPERIDOL LACTATE 5 MG/ML AMP IM STA (14:56)
[2018-02-11] MEDS: NICOTINE 21 MG/24 HR PATCH T-DERMAL SCH (15:00)
[2018-02-11 17:45] VITALS: BP 150/65; PULSE 85; O2SAT 100
[2018-02-11] MEDS ORDERED: REMOVE OLD NICODERM (NICOTINE) PATCH T-DERMAL SCH (21:00)
[2018-02-12 06:07] VITALS: BP 143/76; PULSE 80; RESP 16; TEMP 97.4; O2SAT 97
[2018-02-12] MEDS: NICOTINE 21 MG/24 HR PATCH T-DERMAL SCH (09:00)
[2018-02-12 09:10] LABS: BICARBONATE 23.1 MEQ/L (21.0-32.0); BLOOD UREA NITROGEN 10 MG/DL (7-18); CHLORIDE 102 MEQ/L (98-107); GLOMERULAR FILTRATION RATE 98 ML/MIN (>89); GLUCOSE,RANDOM 218 MG/DL (74-106); SODIUM (NA) 135 MEQ/L (136-145)
[2018-02-12 09:12] LABS: CHOLESTEROL 145 MG/DL (120-200); TRIGLYCERIDES 114 MG/DL (42-150)
[2018-02-12 09:14] LABS: CHOLESTEROL/ HDL RATIO 3.36 RATIO; HDL CHOLESTEROL 43.1 MG/DL (40.0-60.0); LDL CHOLESTEROL 79 MG/DL (0-99)
--- NOTE | 2018-02-12 10:58 | HHI.HP ---
Provisional Diagnosis Admission Date Feb 11, 2018 at 14:49 [place]. 1. Polysubstance abuse 2. Reported history of schizoaffective disorder [place]. 1. 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 Express and informed consent means consent voluntarily given in writing, by a competent person, after sufficient explanation and disclosure of the subject matter involved to enable the person to make a knowing and willful decision without any element of force, fraud, deceit, duress, or other form of constraint or coercion. This person is 18 years of age or older, is not now known to be incompetent to consent to treatment with a guardian advocate, and does not have a health care surrogate or proxy currently making medical treatment decisions. I have found this person to be one of the following: [x] Competent to provide express and informed consent, as defined above, for voluntary admission to this facility and is competent to provide express and informed consent for treatment. He/she has the consistent capacity to make well reasoned, willful, and knowing decisions concerning his or her medical or mental health treatment. The person fully and consistently understands the purpose of the admission for examination/placement and is fully capable of personally exercising all rights [place] Incompetent to provide express and informed consent to voluntary admission, and this is incompetent to provide express and informed consent to treatment. The person must be transferred to involuntary status and a petition for a guardian advocate filed with the Circuit Court. [] Refusing to provide express and informed consent to voluntary admission but is competent to provide express and informed consent for treatment. The person must be discharged or transferred to involuntary status. Form shall be completed within 24 hours of a person's arrival at the receiving facility and filed in the clinical record of each person: 1. Admitted on a voluntary basis 2. Permitted to provide express and informed consent to his/her own treatment 3. Allowed to transfer from involuntary to voluntary status 4. Prior to permitting a person to consent to his or her own treatment after having been previously found incompetent to consent to treatment. History of Present Illness Capacity: Has Capacity Psych Chief Complaint: Substance intoxication. HPI Ms. Neal is a 37-year-old female with a reported history of schizoaffective disorder and substance use issues who presents under a Chappell act by law enforcement alleging that the patient said that she wanted to and be with her mother. Of note, patient's urine toxicology was positive for amphetamines, cocaine and cannabinoids on presentation here. Documentation indicates that the patient was going to be sent to the dual diagnosis unit at the [facility] but became acutely agitated in the ED and so was admitted here at [facility] instead. Reviewing the electronic medical record, I see no previous psychiatric contact within our system. Patient seen and examined with nurse. Chart reviewed. Case discussed with nursing staff. Patient noted to be entitled, demanding and dictating of care. She has been using profanity-laden speech. There has been no evidence of any suicidality or homicidality. On my examination today, patient tells me that she wants us to send her to the [facility] or find her some sort of placement as she is homeless. Strong antisocial/mixed cluster B personality traits noted. She is litigious and complains of having been given Zyprexa IM in the ED because "I' m with the Kassi Bell case," apparently some sort of class action related to hyperglycemia. She also says that she is allergic to Haldol, although she shows absolutely no evidence of any sort of side effects from the doses she has received so far. I have, out of an abundance of caution, listed this as an allergy for the patient. Patient denies issues with mood, and I can elicit no hypomanic/manic or depressive symptoms except for some mild affective lability that I believe is likely more reflective of personality style. She denies any audiovisual hallucinations. She denies any command auditory hallucinations. I can elicit no delusional material. There is no evidence of any impairment in reality construction. She denies any suicidal or homicidal ideation, intent or plan on direct questioning and contracts for safety. The remainder of the psychiatric ROS is negative. No acute physical complaints reported. Past psychiatric history: The patient reports a history of schizoaffective disorder. She reports that she previously followed at [facility] but has not been seen there since September. She was apparently most recently on Depakote, trazodone and Invega Sustenna. She reports that she has been off of her psychotropics for some time. She reports a history of previous psychiatric admissions, although she cannot recall exactly how long ago she was admitted. She endorses a history of nonsuicidal cutting behavior but does not describe any history of suicide attempts. Family history: The patient reports a family history of mental illness, although she cannot recall exactly what people have suffered from. Chemical dependency history: The patient notes that she has been abusing "every damn thing I can get my hands on." Urine toxicology positivity as noted above. Social history: Patient is presently homeless. She reports that she is working 2 jobs. She is single with one daughter. She has 2 years of college. Denies any history. Denies any legal history. She is a [employer]. Denies any access to guns or firearms. Review of Systems Except as stated in HPI: all other systems reviewed are Neg Past Family Social History Coded Allergies: haloperidol (Unverified Allergy, Unknown, 02/12/18) Pt sts historical allergy but has tolerated doses received so far without evident side effects. penicillin G (Verified Allergy, Unknown, 01/31/18) Past Medical History Includes a history of diabetes, hypertension and hyperlipidemia. See EMR. Active Scripts Lisinopril-Hctz (Lisinopril-Hctz) 10-12.5 Mg Tab, 1 TAB PO DAILY for Blood Pressure Management, #30 TAB 0 Refills Prov:Allie Crystal [employer] GRADE TE[employer]ER 10/02/17 Atorvastatin (Atorvastatin) 20 Mg Tab, 20 MG PO HS for Cholesterol Management, # 30 TAB 0 Refills Prov:Allie Crystal [employer] GRADE TEACHER 10/02/17 Insulin Aspart Protam-Asp 70-30 Inj (Novolog Mix 70-30 FlexPen Inj) 300 Unit/3 Ml Pen, 1 UNITS SQ BID for Blood Sugar Management for 30 Days, #1 PEN 0 Refills Prov:Allie Crystal [employer] GR[employer] TE[employer]ER 10/02/17 Insulin Detemir Inj (Levemir Flextouch Pen Inj) 300 unit/3 ML Pen, 1 UNITS SQ BID for Blood Sugar Management for 30 Days, PEN 0 Refills Prov:Allie Crystal [employer] GRADE TEACHER 10/02/17 Reported Medications Hydroxyzine Pamoate (Vistaril) 50 Mg Cap, 50 MG PO HS, CAP 0 Refills 08/09/17 Trazodone (Trazodone) 100 Mg Tablet, 100 MG PO HS for Control Depression, #30 TAB 0 Refills 08/09/17 Paliperidone Palmitate Inj (Invega Sustenna Inj) 156 Mg/Ml Inj, 156 MG IM Q28D for Schizophrenia, #1 VIAL 0 Refills 08/09/17 Bupropion HCl (Bupropion HCl) 100 Mg Tab, 100 MG PO HS for Control Depression, TAB 0 Refills 08/09/17 Divalproex ER (Depakote ER) 500 Mg Arian, 500 MG PO DAILY for Control Seizures, #30 TAB 0 Refills 08/09/17 Discontinued Scripts Codeine-Acetaminophen (Codeine-Acetaminophen) 30-300 mg Tab, 1 TAB PO Q4H Y for PAIN, #10 TAB 0 Refills Prov:Ghassan Ornelas MD 01/24/18 Current Medications Medications (Trade) Dose Ordered Sig/Howie Route Start Time Stop Time Status Last Admin (Ativan) 1 mg Q6H PRN PO 02/11/18 14:45 Future Hold (Ativan Inj) 1 mg Q6H PRN IM 02/11/18 14:45 Future Hold (Ativan) 0.5 mg Q12H PRN PO 02/11/18 14:45 Future Hold (Ativan Inj) 0.5 mg Q12H PRN IM 02/11/18 14:45 Future Hold (Tylenol) 650 mg Q4H PRN PO 02/11/18 14:45 02/12/18 00:56 (Milk Of Magnesia Liq) 30 ml DAILY PRN PO 02/11/18 14:45 (Mag-Al Plus Susp Liq) 30 ml Q6H PRN PO 02/11/18 14:45 (Habitrol 21 Mg Patch.24 Hr) 1 patch DAILY T-DERMAL 02/11/18 15:00 Miscellaneous Information 1 HS T-DERMAL 02/11/18 21:00 Patient's Strengths (min. 2) Attending to basic needs. Verbally fluent. Physical Exam Physical exam completed by ED provider. On my examination today, the patient appears to be in no acute physical distress. No motor abnormalities noted. No signs of intoxication or withdrawal noted. Labs and vitals reviewed: Vital Signs Vital Signs Date Time Temp Pulse Resp B/P (MAP) Pulse Ox O2 Delivery O2 Flow Rate FiO2 4/24/18 06:07 97.4 80 16 143/76 (98) 97 02/11/18 17:45 Room Air Lab Results Laboratory Tests Test 02/10/18 22:21 02/10/18 22:25 02/12/18 08:14 White Blood Count 15.9 TH/MM3 Red Blood Count 4.54 MIL/MM3 Hemoglobin 13.8 GM/DL Hematocrit 41.0 % Mean Corpuscular Volume 90.3 FL Mean Corpuscular Hemoglobin 30.4 PG Mean Corpuscular Hemoglobin Concent 33.6 % Red Cell Distribution Width 13.9 % Platelet Count 387 TH/MM3 Mean Platelet Volume 8.6 FL Neutrophils (%) (Auto) 77.7 % Lymphocytes (%) (Auto) 14.0 % Monocytes (%) (Auto) 7.4 % Eosinophils (%) (Auto) 0.3 % Basophils (%) (Auto) 0.6 % Neutrophils # (Auto) 12.4 TH/MM3 Lymphocytes # (Auto) 2.2 TH/MM3 Monocytes # (Auto) 1.2 TH/MM3 Eosinophils # (Auto) 0.0 TH/MM3 Basophils # (Auto) 0.1 TH/MM3 CBC Comment DIFF FINAL Differential Comment Blood Urea Nitrogen 11 MG/DL 10 MG/DL Creatinine 0.85 MG/DL 0.80 MG/DL Random Glucose 149 MG/DL 218 MG/DL Total Protein 8.5 GM/DL Albumin 3.6 GM/DL Calcium Level 9.3 MG/DL 9.0 MG/DL Alkaline Phosphatase 80 U/L Aspartate Amino Transf (AST/SGOT) 18 U/L Alanine Aminotransferase (ALT/SGPT) 21 U/L Total Bilirubin 0.5 MG/DL Sodium Level 139 MEQ/L 135 MEQ/L Potassium Level 3.8 MEQ/L 3.7 MEQ/L Chloride Level 106 MEQ/L 102 MEQ/L Carbon Dioxide Level 23.9 MEQ/L 23.1 MEQ/L Thyroid Stimulating Hormone 3rd Gen 1.330 uIU/ML Salicylates Level 4.1 MG/DL Acetaminophen Level LESS THAN 2.0 MCG/ML Ethyl Alcohol Level LESS THAN 3 MG/DL Urine Color YELLOW Urine Turbidity HAZY Urine pH 6.0 Urine Specific [place] 1.029 Urine Protein 30 mg/dL Urine Glucose (UA) 300 mg/dL Urine Ketones TRACE mg/dL Urine Occult Blood NEG Urine Nitrite NEG Urine Bilirubin NEG Urine Urobilinogen 2.0 MG/DL Urine Leukocyte Esterase NEG Urine RBC 2 /hpf Urine WBC 6 /hpf Urine Squamous Epithelial Cells 39 /hpf Urine Mucus MANY /lpf Microscopic Urinalysis Comment CULT NOT INDICATED Urine Opiates Screen NEG Urine Barbiturates Screen NEG Urine Amphetamines Screen POS Urine Benzodiazepines Screen NEG Urine Cocaine Screen POS Urine Cannabinoids Screen POS Anion Gap 10 MEQ/L Estimat Glomerular Filtration Rate 98 ML/MIN Triglycerides Level 114 MG/DL Cholesterol Level 145 MG/DL LDL Cholesterol 79 MG/DL HDL Cholesterol 43.1 MG/DL Cholesterol/HDL Ratio 3.36 RATIO Mental Status Examination Appearance: Appropriate Consciousness: Alert Orientation: x4 Motor Activity: Normal gait Speech: Rapid Language: Adequate Fund of Knowledge: Adequate Attention and Concentration: Other (Fair) Memory: Unremarkable Mood: Irritable Affect: Labile Thought Process & Associations: Intact, Goal directed Thought Content: Appropriate Hallucination Type: None Delusion Type: None Suicidal Ideation: No Suicidal Plan: No Suicidal Intention: No Homicidal Ideation: No Homicidal Plan: No Homicidal Intention: No Mental Status Exam Remarks Insight and judgment are likely chronically fair to poor at best Assessment & Plan Problem List: (1) Polysubstance abuse ICD Codes: F19.10 - Other psychoactive substance abuse, uncomplicated Status: Acute (2) Cluster B personality disorder ICD Codes: F60.9 - Personality disorder, unspecified (3) History of schizoaffective disorder ICD Codes: Z86.59 - Personal history of other mental and behavioral disorders Assessment & Plan 37-year-old female with psychiatric history as detailed above who presents under Chappell act. On my examination today, the patient presents as fairly personality disordered. Personality disorder and substance use issues seem to be her primary psychiatric issues at present. I suspect her agitation up to this point has been mediated by the personality disorder and substance intoxication. I can appreciate no unstable [place] mental illness other than substance use disorder in this patient at this time. Patient is requesting transfer to the [facility] as had been the original plan, and counselor has made arrangements for the transfer. It is my hope that she will be able to get help for her substance use issues on their dual-diagnosis unit. Patient will transferred to the [facility] this afternoon with further care as per providers there. I have provided no prescriptions on discharge. This note serves also as my discharge summary. Discharge Planning Transfer to the [facility] today. Request HC Surrog/Guard Advoc?: No Rahul Miranda MD Feb 12, 2018 10:57
[2018-02-12] MEDS ORDERED: DEXTROSE 50% IN WATER 50 ML VIAL(D50) IV PUSH PRN (11:00)
[2018-02-12] MEDS ORDERED: GLUCAGON 1 MG/ML VIAL OTHER PRN (11:00)
[2018-02-12] MEDS ORDERED: INSULIN ASPART SUPPLEMENTAL SCALE SQ SCH (12:00)
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
[2018-02-12 15:56] LABS: HEMOGLOBIN A1C 7.9 % (4.3-6.0)
== END 2018-02-12 16:10 | DRG 897 ==
LOC: NEPD 22:06 → NEDA 02-11 14:49 → H270 02-11 17:55
PROVIDERS: ADMIT Psychiatry & Neurology Psychiatry; ATTEND Psychiatry & Neurology Psychiatry
DX: F14.10 Cocaine abuse, uncomplicated (principal); R45.851 Suicidal ideations; F60.89 Other specific personality disorders; Z78.1 Physical restraint status; R45.850 Homicidal ideations; I10 Essential (primary) hypertension; F25.9 Schizoaffective disorder, unspecified; E11.9 Type 2 diabetes mellitus without complications; F17.210 Nicotine dependence, cigarettes, uncomplicated; F12.10 Cannabis abuse, uncomplicated; E78.5 Hyperlipidemia, unspecified; F41.9 Anxiety disorder, unspecified; F31.9 Bipolar disorder, unspecified; K21.9 Gastro-esophageal reflux disease without esophagitis; Z59.0 Homelessness; Z81.8 Family history of other mental and behavioral disorders; Z79.4 Long term (current) use of insulin
CPT/HCPCS: 80048; 80053; 80061; 80307; 81001; 82948; 83036; 84443; 85025; 96372; J1200; J1630; J2060